=== PATIENT | female | born 1970 | race Caucasian/White ===

== ENCOUNTER 2016-06-20 12:00 | Emergency (ER) | payer MEDICAID, OTHER ==
[~2016-06-20] VITALS: Ht 165.1 cm; Wt 55.6 kg
[2016-06-20 12:32] VITALS: BP 124/74; PULSE 72; RESP 16; TEMP 98.4; O2SAT 99
--- NOTE | 2016-06-20 13:42 | PD ---
HPI Chief Complaint: Head Injury Time Seen by Provider: 13:15 Travel History International Travel<30 days: No Contact w/Intl Traveler<30days: No Traveled to known affect area: No History of Present Illness HPI 45yo F with no PMH presents to the ED for evaluation after head trauma. Pt had slip on rain and fell backwards onto the sidewalk. States she think she passed out but she is unsure. States she was out for just a short time and woke up with bystanders around her. Currently complaining of pain in mid parietal region. Denies any nausea, vomiting, fever, chest pain, sob, abdominal pain. Pt is not on any anticoagulation. She was asked by her work to come to ED for evaluation. PFSH Past Medical History Medical History: Denies Significant Hx Tetanus Vaccination: Unknown Influenza Vaccination: No ?: Not LMP: Last week : 1 Para: 1 Miscarriage: 0 : 0 Past Surgical History Appendectomy: Yes Section: Yes Social History Alcohol Use: Yes (Occ.) Tobacco Use: No Substance Use: No Allergies-Medications (Allergen,Severity, Reaction): Coded Allergies: No Known Allergies (Unverified , 06/20/16) Reported Meds & Prescriptions Reported Meds & Active Scripts Active Acetaminophen Extra Strength (Acetaminophen) 500 Mg Tab 500 Mg PO Q6H PRN Review of Systems Except as stated in HPI: all other systems reviewed are Neg Physical Exam Narrative GENERAL: 45yo F not in distress. SKIN: Warm and dry. HEAD: Atraumatic. Normocephalic. EYES: Pupils equal and round at 3mm bilaterally. EOMI. No scleral icterus. No injection or drainage. ENT: No nasal bleeding or discharge. Mucous membranes pink and moist. NECK: No midline ttp cervical spine. CARDIOVASCULAR: Regular rate and rhythm. No murmur appreciated. RESPIRATORY: No accessory muscle use. Clear to auscultation. Breath sounds equal bilaterally. GASTROINTESTINAL: Abdomen soft, non-tender, nondistended. No rebound tenderness or guarding. BACK: No midline thoracic or lumbar spine. MUSCULOSKELETAL: No obvious deformities. No clubbing. No cyanosis. No edema. NEUROLOGICAL: Awake and alert. No obvious cranial nerve deficits. Motor grossly within normal limits. Normal speech. PSYCHIATRIC: Appropriate mood and affect; insight and judgment normal. Data Data Last Documented VS Vital Signs Date Time Temp Pulse Resp B/P Pulse Ox O2 Delivery O2 Flow Rate FiO2 06/20/16 17:00 57 16 125/84 100 Room Air 06/20/16 12:[address] Brain W/O Iv Contrast(Rout) (06/20/16 ) MDM Medical Decision Making Medical Screen Exam Complete: Yes Emergency Medical Condition: Yes Differential Diagnosis Concussion vs. contusion Narrative Course 45yo F with headache s/p slip and fall from standing. Pt states she may have passed out but not for a long time. ?LOC. Pt has no focal neurologic deficits and does not want any pain medication for her headache right now. States it is not bad and she has tylenol and will take it at home. Sign out to next team to follow up with CT brain results. Diagnosis Primary Impression: Head trauma Qualified Code: S09.90XA - Head trauma, initial encounter Patient Instructions: General Instructions Departure Forms: Tests/Procedures Additional Instructions: Please return to the ED immediately if you have worsening headache, weakness, numbness, vomiting or vision changes. Please follow up with PMD in 3-7 days. Med/Other Pt SpecificInfo: Prescription(s) given Scripts Acetaminophen (Acetaminophen Extra Strength)500 Mg [id number] Mg PO Q6H PRN (PAIN SCALE 1 TO 4) #20 TAB Ref 0 Prov:Ximena Cardoza DO 06/20/16 Disposition: 01 DISCHARGE HOME Condition: Stable Ximena Cardoza DO Jun 20, 2016 13:42
[2016-06-20] MEDS ORDERED: ACET500T36 PO (15:41)
--- NOTE | 2016-06-20 16:21 | RADHPO ---
EXAM DATE/TIME: 06/20/2016 15:38 [facility] COMPARISON: No previous studies available for comparison. INDICATIONS : Fall. Hit to back of head. RADIATION DOSE: 61.12 CTDIvol (mGy) MEDICAL HISTORY : None SURGICAL HISTORY : Appendectomy. section. ENCOUNTER: Initial ACUITY: 1 day PAIN SCALE: 5/10 LOCATION: Bilateral occipital TECHNIQUE: Multiple contiguous axial images were obtained of the head. Using automated exposure control and adj ustment of the mA and/or kV according to patient size, radiation dose was kept as low as reasonably a chievable to obtain optimal diagnostic quality images. FINDINGS: CEREBRUM: The ventricles are normal for age. No evidence of midline shift, mass lesion, hemorrhage or acute in farction. No extra-axial fluid collections are seen. POSTERIOR FOSSA: The cerebellum and brainstem are intact. The 4th ventricle is midline. The cerebellopontine angle i s unremarkable. EXTRACRANIAL: The visualized portion of the orbits is intact. SKULL: The calvaria is intact. No evidence of skull fracture. CONCLUSION: Normal examination. Artemio Romero Jr., MD on June 20, 2016 at 16:19 Board Certified Radiologist. This report was verified electronically.
--- NOTE | 2016-06-20 16:36 | PD ---
Physical Exam Date Seen by Provider: Jun 20, 2016 Time Seen by Provider: 16:35 Narrative 45-year-old female had an accident at work. She fell backwards and hit her head with possible loss of consciousness. She was seen by Dr. Cardoza. A CT scan has been obtained and has been read as negative. Patient is stable for discharge. She is alert and active at this time. Her speech is clear Data Data Last Documented VS Vital Signs Date Time Temp Pulse Resp B/P Pulse Ox O2 Delivery O2 Flow Rate FiO2 06/20/16 12:32 98.4 72 16 124/[address] Brain W/O Iv Contrast(Rout) (06/20/16 ) [facility] Medical Record Reviewed: Yes Supervised Visit with SRAVANTHI: No Differential Diagnosis Differential includes includes skull fracture, subdural, concussion, contusion head Narrative Course CT is negative for hemorrhage or fracture Diagnosis Primary Impression: Head trauma Qualified Code: S09.90XA - Head trauma, initial encounter Patient Instructions: General Instructions Departure Forms: Tests/Procedures Additional Instruction: Please return to the ED immediately if you have worsening headache, weakness, numbness, vomiting or vision changes. Please follow up with PMD in 3-7 days. Scripts Acetaminophen (Acetaminophen Extra Strength)500 Mg [id number] Mg PO Q6H PRN (PAIN SCALE 1 TO 4) #20 TAB Ref 0 Prov:Ximena Cardoza DO 06/20/16 Disposition: 01 DISCHARGE HOME Condition: Stable Zeeshan Woodruff MD Jun 20, 2016 16:36
[2016-06-20 17:00] VITALS: BP 125/84; PULSE 57; RESP 16; O2SAT 100
== END 2016-06-20 17:05 | disposition home or self-care (01) ==
LOC: PHEFT 12:00
DX: S09.90XA Unspecified injury of head, initial encounter (principal); W01.0XXA Fall on same level from slipping, tripping and stumbling without subsequent striking against object, initial encounter; Y92.480 Sidewalk as the place of occurrence of the external cause; Y99.0 Civilian activity done for income or pay
CPT/HCPCS: 70450

== ENCOUNTER 2016-09-04 11:52 | Emergency (ER) | payer MEDICAID, OTHER ==
[~2016-09-04] VITALS: Ht 165.1 cm; Wt 54.0 kg
[~2016-09-04 11:52] MED LIST: ACET500T36 PO
[2016-09-04 12:01] VITALS: BP 123/67; PULSE 62; RESP 16; TEMP 98.3; O2SAT 99
[2016-09-04] MEDS ORDERED: IBUPROFEN 600 MG TAB PO ONE (12:30)
[2016-09-04] MEDS ORDERED: METHOCARBAMOL 500 MG TAB PO SCH (12:30)
[2016-09-04] MEDS ORDERED: DEXAMETHASONE SOD PHOS 4 MG/ML VIAL IM ONE (12:30)
--- NOTE | 2016-09-04 12:30 | PD ---
HPI Chief Complaint: Musculoskeletal Complaint Time Seen by Provider: 12:22 Travel History International Travel<30 days: No Contact w/Intl Traveler<30days: No Traveled to known affect area: No History of Present Illness HPI 45-year-old female presents to the emergency room for evaluation of left-sided neck pain radiating down her left upper extremity for the past 1-2 months. Patient states she fell at onset of symptoms and had a CT of her head but not of her neck. Since then she has had worsening left-sided neck pain. The pain radiates down her left upper extremity and is described as excruciating. Occasionally sharp in nature. She has associated upper extremity paresthesias. Worse with range of motion or left upper extremity and at night. She has been taking ibuprofen with minimal relief in symptoms. She went to her chiropractor a few days ago who adjusted her and stated that she may have a slipped disc. She has not seen her primary care physician as well as initiated. Denies chronic medical conditions or daily medications. PFSH Past Medical History ?: Not LMP: 08/27/16 : 1 Para: 1 Miscarriage: 0 : 0 Past Surgical History Appendectomy: Yes Section: Yes Social History Alcohol Use: Yes (Occ.) Tobacco Use: No Substance Use: No Allergies-Medications (Allergen,Severity, Reaction): Coded Allergies: No Known Allergies (Unverified , 09/04/16) Reported Meds & Prescriptions Reported Meds & Active Scripts Active Robaxin (Methocarbamol) 750 Mg Tab 750 Mg PO Q8HR Ibuprofen 600 Mg Tab 600 Mg PO Q8HR PRN Review of Systems Except as stated in HPI: all other systems reviewed are Neg Physical Exam Narrative GENERAL: Well-nourished, well-developed female in no acute distress. Afebrile. Ambulatory. SKIN: Focused skin assessment warm/dry. HEAD: Normocephalic. EYES: No scleral icterus. No injection or drainage. NECK: Supple. No meningeal signs. Trachea midline. No JVD or lymphadenopathy. Mild tenderness to palpation of the left cervical spine C2. Full range of motion of the neck. CARDIOVASCULAR: Regular rate and rhythm without murmurs, gallops, or rubs. RESPIRATORY: Breath sounds equal bilaterally. No accessory muscle use. PSYCHIATRIC: No delusional thought processes. No hallucinations. EXTREMITY: Left upper extremity with no focal tenderness to palpation. Full range of motion in all joints. No joint swelling/injury. 2+ radial pulse. Strength 5/5 and equal in upper extremities. Data Data Last Documented VS Vital Signs Date Time Temp Pulse Resp B/P Pulse Ox O2 Delivery O2 Flow Rate FiO2 09/04/16 12:01 98.3 62 16 123/[address] Cerv Spine W/O Contrast (09/04/16 ) Dexamethasone Inj (Decadron Inj) (09/04/16 12:30) Methocarbamol (Robaxin) (09/04/16 12:30) Ibuprofen (Motrin) (09/04/16 12:30) MDM Medical Decision Making Medical Screen Exam Complete: Yes Emergency Medical Condition: Yes Medical Record Reviewed: Yes Differential Diagnosis Spondylolisthesis versus lesion versus strain versus fracture Narrative Course 45-year-old female presents to the emergency room for evaluation of left-sided neck pain radiating down her left upper extremity for the past 1-2 months after falling. She was seen here 2 months ago and had a CT of her brain which was negative but no CT of the neck. She has associated upper extremity paresthesias and subjective weakness. She is crying in pain. Physical exam reveals that left upper extremity is neurovascularly intact with 2+ radial pulse and 5/5 strength. No edema, erythema, ecchymosis, deformity, or point tenderness. Tenderness to palpation of the left cervical spine at C2-C3. Full range of motion of the neck. CT of the neck shows shallow protrusion at C5. Patient given ibuprofen and Robaxin in the ER and discharged with prescriptions for the same. She was also given Decadron in the emergency room. Told to continue range of motion of the shoulder to prevent frozen shoulder and follow up with the primary care physician for MRI return to the emergency room for worsening symptoms. She understands and agrees to plan. Diagnosis Primary Impression: Bulging of cervical intervertebral disc Referrals: Primary Care Physician Patient Instructions: Cervical Disc Herniation (ED), General Instructions Additional Instructions: Rest and drink plenty of fluids. Take Robaxin as directed, as needed for pain. Take ibuprofen with food as directed, as needed for pain. Apply ice to the affected area for 20 minutes at a time, as needed for pain and swelling. Follow-up with a primary care physician. Return to the emergency room for worsening symptoms. Med/Other Pt SpecificInfo: Prescription(s) given Scripts Methocarbamol (Robaxin)750 Mg [id number] Mg PO Q8HR #21 TAB Ref 0 Prov:Michell Hassan DO 09/04/16 Ibuprofen 600 Mg [id number] Mg PO Q8HR PRN (Pain/Inflammation) #21 TAB Ref 0 Prov:Michell Hassan DO 09/04/16 Disposition: 01 DISCHARGE HOME Condition: Stable Ashli Alonso September 04, 2016 12:30
--- NOTE | 2016-09-04 13:36 | RADHPO ---
EXAM DATE/TIME: 09/04/2016 12:54 [facility] COMPARISON: No previous studies available for comparison. INDICATIONS : Left neck pain with radiculopathy down left arm. RADIATION DOSE: 24.27 CTDIvol (mGy) MEDICAL HISTORY : None SURGICAL HISTORY : Appendectomy. section. ENCOUNTER: Initial ACUITY: 1 month PAIN SCALE: 8/10 LOCATION: Left neck TECHNIQUE: Volumetric scanning of the cervical spine was performed. Multiplanar reconstructions in the sagittal, coronal and oblique axial planes were performed. Using automated exposure control and adjustment o f the mA and/or kV according to patient size, radiation dose was kept as low as reasonably achievable to obtain optimal diagnostic quality images. FINDINGS: VERTEBRAE: Normal vertebral body height. ALIGNMENT: No evidence of subluxation. C2-C3: The bony spinal canal is normal in size. No evidence of disc bulge or herniation. The neural forami na are bilaterally patent. C3-C4: The bony spinal canal is normal in size. No evidence of disc bulge or herniation. The neural forami na are bilaterally patent. C4-C5: The bony spinal canal is normal in size. No evidence of disc bulge or herniation. The neural forami na are bilaterally patent. C5-C6: Shallow right-sided protrusion abuts the ventral thecal sac. The neural foramina are bilaterally pat ent. C6-C7: The bony spinal canal is normal in size. No evidence of disc bulge or herniation. The neural forami na are bilaterally patent. C7-T1: The bony spinal canal is normal in size. No evidence of disc bulge or herniation. The neural forami na are bilaterally patent. CONCLUSION: 1. Shallow right-sided protrusion at C5-6. 2. No fracture. Kenyon Gale MD on September 04, 2016 at 13:32 Board Certified Radiologist. This report was verified electronically.
[2016-09-04] MEDS ORDERED: ROBA750T PO (13:52)
[2016-09-04] MEDS ORDERED: IBUP-232 PO (13:52)
== END 2016-09-04 14:13 | disposition home or self-care (01) ==
LOC: PHEFT 11:52
DX: M50.21 Other cervical disc displacement, high cervical region (principal)
CPT/HCPCS: 72125; 96372; 99284; J1100

== ENCOUNTER → 2016-12-13 | Outpatient (CLI) | payer MEDICAID ==
[~2016-12-13] MED LIST changes: -ACET500T36 PO; +IBUP-232 PO; +ROBA750T PO
--- NOTE | 2016-12-13 10:17 | RADRPT ---
EXAM DATE/TIME: 12/13/2016 07:45 [facility] COMPARISON: No previous studies available for comparison. INDICATIONS : Left arm and neck pain. MEDICAL HISTORY : None. SURGICAL HISTORY : Appendectomy. section. ENCOUNTER: Subsequent ACUITY: 3 months PAIN SCORE: 4/10 LOCATION: neck TECHNIQUE: Multiplanar, multisequence MRI examination of the cervical spine was performed. FINDINGS: VERTEBRAE: Normal vertebral body height. Homogeneous marrow signal. ALIGNMENT: No evidence of subluxation. CORD: Normal configuration and signal. POST FOSSA: The cerebellar tonsils are normal in position. C2-C3: The thecal sac has a normal configuration. There is no evidence of disc herniation or spinal canal s tenosis. The neural foramina are patent bilaterally. C3-C4: The thecal sac has a normal configuration. There is no evidence of disc herniation or spinal canal s tenosis. The neural foramina are patent bilaterally. C4-C5: The thecal sac has a normal configuration. There is no evidence of disc herniation or spinal canal s tenosis. The neural foramina are patent bilaterally. C5-C6: There is an small right-sided disc protrusion is encroaching on the RIGHT C6 root. The left is uninv olved.. C6-C7: Minimal left sided neural foramina encroachment is present from minimal disc protrusion causing mild flattening of the intrathecal space without significant neural compression. C7-T1: The thecal sac has a normal configuration. There is no evidence of disc herniation or spinal canal s tenosis. The neural foramina are patent bilaterally. CONCLUSION: Minimal disc disease as described above. Right-sided findings are present at C5-C6 . Left sided findings are present at C6-C7. Aiden Meraz MD FACR on December 13, 2016 at 9:54 Board Certified Radiologist. This report was verified electronically.
--- NOTE | 2016-12-13 10:40 | RADRPT ---
EXAM DATE/TIME: 12/13/2016 08:06 This report includes an Addendum and supersedes previous reports for this exam. [facility] COMPARISON: No previous studies available for comparison. INDICATIONS : Left shoulder pain. MEDICAL HISTORY : None. SURGICAL HISTORY : Appendectomy. section. ENCOUNTER: Subsequent ACUITY: 3 months PAIN SCORE: 4/10 LOCATION: Left shoulder TECHNIQUE: Multiplanar, multisequence MRI examination was performed without contrast. FINDINGS: The marrow signal is in homogeneous in the humeral head in nonspecific fashion. There is trace joint effusion evident. There is minimal signal in the undersurface of the supraspinatus tendon that probably is an undersurf hannah incomplete partial tear. The signal intensity at the insertion on the humeral head is normal. Impression there is, deltoid and teres major pattern unremarkable. Glenoid appears normal without evidence for labral injury. CONCLUSION: Inhomogeneous marrow in the humeral, nonspecific. Correlation with plain films is suggested. Increased signal undersurface supraspinatus tendon consistent with complete undersurface tear. Aiden Meraz MD FACR on December 13, 2016 at 10:33 Board Certified Radiologist. This report was verified electronically. ADDENDUM: Third sentence of the conclusion should read increased signal undersurface supraspinatus tendon consi stent with incomplete undersurface tear. There is also intermediate signal within the rotator interval and posterior axillary recess indicatin g possible adhesive capsulitis. Kailash Perkins MD on December 20, 2016 at 12:18 Board Certified Radiologist. This report was verified electronically.
== END ==
LOC: HRAD 07:00
DX: M54.2 Cervicalgia (principal); M54.12 Radiculopathy, cervical region; M25.512 Pain in left shoulder
CPT/HCPCS: 72141; 73221